=== PATIENT | male | born 1970 | race Caucasian/White ===

== ENCOUNTER 2022-03-14 22:33 | Emergency (ER) | payer OTHER ==
[~2022-03-14] VITALS: Ht 177.8 cm; Wt 116.2 kg
--- NOTE | 2022-03-14 23:04 | PHYS DOC ---
Past History Past Surgical History: Other Additional Past Surgical Histo: PYLORIC STENOSIS AN INFANT Alcohol Use: Rarely General Adult EDM: Chief Complaint: HYPERTENSION HPI: HPI: 52-year-old male presents with headache and hypertension. The patient has been out of his lisinopril for 2 weeks. His primary concern today is his headache. It is a right-sided throbbing headache. This is similar to his previous migraine headaches. He has a migraine history. Patient has not any medications for this. He denies any falls or trauma. Denies fever or chills. Review of Systems: Review of Systems: Constitutional: Denies fever or chills Eyes: Denies change in visual acuity HENT: Denies nasal congestion or sore throat Respiratory: Denies cough or shortness of breath Cardiovascular: Denies chest pain or edema GI: Denies abdominal pain, nausea, vomiting, bloody stools or diarrhea : Denies dysuria Musculoskeletal: Denies back pain or joint pain Integument: Denies rash Neurologic: Headache. Denies focal weakness or sensory changes Endocrine: Denies polyuria or polydipsia Lymphatic: Denies swollen glands Psychiatric: Denies depression or anxiety Current Medications: Current Meds: Current Medications Medications (Trade) Dose Ordered Sig/Maria Del Carmen Start Time Stop Time Status Last Admin Dose Admin Clonidine HCl (Catapres) 0.1 mg 1X ONCE 03/14/22 23:00 03/14/22 23:01 UNV Diphenhydramine HCl (Benadryl) 25 mg 1X ONCE 03/14/22 22:45 03/14/22 22:46 UNV Ketorolac Tromethamine (Toradol 30mg Vial) 30 mg 1X ONCE 03/14/22 22:45 03/14/22 22:46 UNV Lisinopril (Prinivil) 20 mg 1X ONCE 03/14/22 23:00 03/14/22 23:01 UNV Metoclopramide HCl (Reglan Vial) 10 mg 1X ONCE 03/14/22 22:45 03/14/22 22:46 UNV Sodium Chloride 1,000 ml @ 1,000 mls/hr 1X ONCE 03/14/22 22:45 03/14/22 23:44 UNV Physical Exam: PE: Constitutional: Well developed, well nourished, obese, no acute distress, non-to xic appearance. [] HENT: Normocephalic, atraumatic, bilateral external ears normal, oropharynx moist, no oral exudates, nose normal. [] Eyes: PERRLA, EOMI, conjunctiva normal, no discharge. [] Neck: Normal range of motion, no tenderness, supple, no stridor. [] Cardiovascular: Heart rate regular rhythm, no murmur [] Lungs & Thorax: Bilateral breath sounds clear to auscultation [] Abdomen: Bowel sounds normal, soft, no tenderness, no masses, no pulsatile masses. [] Skin: Warm, dry, no erythema, no rash. [] Back: No tenderness, no CVA tenderness. [] Extremities: No tenderness, no cyanosis, no clubbing, ROM intact, no edema. [] Neurologic: Alert and oriented X 3, normal motor function, normal sensory function, no focal deficits noted. [] Psychologic: Affect normal, judgement normal, mood normal. [] Current Patient Data: Vital Signs: Vital Signs Date Time Temp Pulse Resp B/P (MAP) Pulse Ox O2 Delivery O2 Flow Rate FiO2 03/14/22 22:45 97.8 79 20 204/109 (140) 97 Room Air EKG: EKG: [] Radiology/Procedures: Radiology/Procedures: [] Heart Score: C/O Chest Pain: N/A Risk Factors: Risk Factors: DM, Current or recent (<one month) smoker, HTN, HLP, family history of CAD, obesity. Risk Scores: Score 0 - 3: 2.5% MACE over next 6 weeks - Discharge Home Score 4 - 6: 20.3% MACE over next 6 weeks - Admit for Clinical Observation Score 7 - 10: 72.7% MACE over next 6 weeks - Early Invasive Strategies Course & Med Decision Making: Course & Med Decision Making Pertinent Labs and Imaging studies reviewed. (See chart for details) The patient's blood pressure was elevated on arrival. We will treat his headache and his blood pressure. Have ordered 20 mg of lisinopril and 0.1 of clonidine. For his headache we will give a liter normal saline, 25 mg of Benadryl, 10 mg of Reglan, 30 mg of Toradol. The patient's labs are unremarkable. The patient's blood pressure still elevated but improved from arrival. I will give him a bridge prescription for 20 mg of lisinopril so that he has time to sorted out with his primary care physician. His headache is improved. He is stable for discharge at this time. [] Jair Disclaimer: Jair Disclaimer: This electronic medical record was generated, in whole or in part, using a voice recognition dictation system. Departure Departure: Impression: Primary Impression: Migraine headache Additional Impression: Hypertension Disposition: HOME / SELF CARE / HOMELESS Condition: STABLE Referrals: OWEN ELAM MD (PCP) Patient Instructions: Hypertension, [id number] Scripts Lisinopril (LISINOPRIL) 20 Mg Tablet 1 TAB PO DAILY for hypertension, #30 TAB 0 Refills Prov: TAYO SUNSHINE DO 03/15/22 TAYO SUNSHINE DO March 14, 2022 23:04
[2022-03-14 23:35] LABS: BASO # 0.1 x10^3/uL (0.0-0.2); BASO % 1 % (0-3); EOS # 0.3 x10^3/uL (0.0-0.7); EOS % 4 % (0-3); HEMATOCRIT 42.6 % (39.0-53.0); HEMOGLOBIN 14.8 g/dL (13.0-17.5); LYMPH # 2.3 x10^3/uL (1.0-4.8); LYMPH % 35 % (24-48); MEAN CORPUSCULAR HEMOGLOBIN 29 pg (25-35); MEAN CORPUSCULAR HGB CONC 35 g/dL (31-37); MEAN CORPUSCULAR VOLUME 83 fL (79-100); MONO # 0.8 x10^3/uL (0.0-1.1); MONO % 12 % (0-9); NEUT # 3.2 x10^3uL (1.8-7.7); NEUT % 49 % (31-73); PLATELET COUNT 224 x10^3/uL (140-400); RED BLOOD COUNT 5.11 x10^6/uL (4.30-5.70); RED CELL DISTRIBUTION WIDTH 13.5 % (11.5-14.5); WHITE BLOOD COUNT 6.7 x10^3/uL (4.0-11.0)
[2022-03-14] MEDS ORDERED: IV NORMAL SALINE 1,000ML 1,000 ML IV ONE (23:45)
[2022-03-14] MEDS ORDERED: KETOROLAC 30 MG/ML VIAL. IVP ONE (23:45)
[2022-03-14] MEDS ORDERED: LISINOPRIL 10 MG TABLET PO ONE (23:45)
[2022-03-14] MEDS ORDERED: cloNIDine HCL 0.1 MG TABLET PO ONE (23:45)
[2022-03-14] MEDS ORDERED: diphenhydrAMINE 50 MG/ML VIAL IVP ONE (23:45)
[2022-03-14] MEDS ORDERED: METOCLOPRAMIDE HCL 10 MG/2 ML VIAL. IVP ONE (23:45)
[2022-03-14 23:51] LABS: CREATININE 1.1 mg/dL (0.7-1.3); GFR 70.6; POTASSIUM 4.1 mmol/L (3.5-5.1)
[2022-03-14 23:56] LABS: ALBUMIN 4.1 g/dL (3.4-5.0); ALBUMIN/GLOBULIN RATIO 1.2 (1.0-1.7); TOTAL BILIRUBIN 0.5 mg/dL (0.2-1.0); TOTAL PROTEIN 7.5 g/dL (6.4-8.2)
[2022-03-15] MEDS ORDERED: LISI20TA18 PO (00:12)
[2022-03-15 00:15] VITALS: BP 153/91
== END 2022-03-15 00:25 | disposition home or self-care (01) ==
LOC: ER 22:33
DX: I10 Essential (primary) hypertension (principal); G43.909 Migraine, unspecified, not intractable, without status migrainosus
CPT/HCPCS: 36415; 80053; 85025; 96361; 96374; 96375; 99284; J1200; J1885; J2765; J7030